=== PATIENT | male | born 1970 | race Hispanic/Latino ===

== ENCOUNTER → 2023-03-11 | Day surgery (SDC) | payer BC ==
[~2023-03-11] MED LIST: ATORVASTATIN CA20 MG PO; DICYCLOMINE HCL10 MG PO; FENTANYL CITRATE/PF 100MCG/2 ML INJ ONE; LACTATED RINGER'S 1,000 ML ONE; LISINOPRIL-HCT1 EAC2 PO; METFORMIN HCL500 MG PO; MIDAZOLAM HCL 2 MG/2 ML VIAL ONE; OR PHACO EYE KIT ONE; PREOP PHACO EYE KIT ONE; TROPICAMIDE 1% OPTH SOLN 15 ML BTL ONE
[2023-03-11 12:47] VITALS: BP 147/92; PULSE 84; RESP 18; O2SAT 97
== END | disposition home or self-care (01) ==
LOC: OR 08:09
PROVIDERS: ATTEND Ophthalmology
DX: H52.4 Presbyopia (principal); I10 Essential (primary) hypertension; E78.5 Hyperlipidemia, unspecified; E11.9 Type 2 diabetes mellitus without complications; Z79.84 Long term (current) use of oral hypoglycemic drugs; Z79.899 Other long term (current) drug therapy; Z87.891 Personal history of nicotine dependence
CPT/HCPCS: 66984; J2250; J3010; J7121; V2632